=== PATIENT | female | born 1950 | race Hispanic/Latino ===

== ENCOUNTER 2018-08-02 16:15 | Emergency (ER) | payer BC, MEDICARE ==
[2018-08-02 17:05] VITALS: BMI 48.9
[2018-08-02 17:10] VITALS: RESP 18; TEMP 98.3
[2018-08-02] MEDS ORDERED: Oxycodone/Acetaminophen 5/325 mg Tab PO STA (17:17)
--- NOTE | 2018-08-02 17:22 | ED PDOC ---
Arrival/HPI - General Time Seen by Provider: 08/02/18 17:07 Historian: Patient - History of Present Illness Narrative History of Present Illness (Text): 08/02/18 17:21 67 y/o female, pmh including htn/chronic venous stasis, nkda, c/o lower leg pain s/p flying on the plane 2 days ago and concerning for DVT. Pt. stated that she has no chest pain or shortness of breath, no pleuritic pain, no night sweat, no rash, no dizziness, no change in vision, no other medical or psychological complaints. Past Medical History - Provider Review Nursing Documentation Reviewed: Yes Family/Social History - Physician Review Nursing Documentation Reviewed: Yes Family/Social History: Unknown Family HX Allergies/Home Meds Allergies/Adverse Reactions: Allergies No Known Allergies Allergy (Verified 08/02/18 17:17) Review of Systems - Review of Systems Constitutional: absent: Fatigue, Fevers Eyes: absent: Vision Changes ENT: absent: Hearing Changes Respiratory: absent: SOB, Cough Cardiovascular: absent: Chest Pain Gastrointestinal: absent: Abdominal Pain, Diarrhea, Nausea, Vomiting Musculoskeletal: Myalgias. absent: Arthralgias, Back Pain Skin: absent: Rash, Pruritis Neurological: absent: Headache, Dizziness Psychiatric: absent: Anxiety, Depression, Suicidal Ideation Physical Exam Vital Signs Reviewed: Yes Vital Signs Temp Pulse Resp BP Pulse Ox 08/02/18 17:04 98.3 F 75 18 186/93 H 98 Temperature: Afebrile Blood Pressure: Hypertensive Pulse: Regular Respiratory Rate: Normal Appearance: Positive for: Well-Appearing, Non-Toxic, Comfortable Pain Distress: Moderate Mental Status: Positive for: Alert and Oriented X 3 - Systems Exam Head: Present: Atraumatic, Normocephalic Pupils: Present: PERRL Extroacular Muscles: Present: EOMI Conjunctiva: Present: Normal Mouth: Present: Moist Mucous Membranes Neck: Present: Normal Range of Motion Respiratory/Chest: Present: Clear to Auscultation, Good Air Exchange. No: Resp iratory Distress, Accessory Muscle Use Cardiovascular: Present: Regular Rate and Rhythm, Normal S1, S2. No: Murmurs Abdomen: No: Tenderness, Distention, Peritoneal Signs Back: Present: Normal Inspection Upper Extremity: Present: Normal Inspection. No: Cyanosis, Edema Lower Extremity: Present: Normal Inspection, Other (Bilateral lower: visible chronic venuous insufficiency with mild +calf tenderness, no ulcers, FROM without limtiation, sensation intact, motor 5/5, +DPPT pulses bilaterally, capillary refill< 2 seconds, neurovascular intact. ). No: Edema Neurological: Present: GCS=15, CN II-XII Intact, Speech Normal Skin: Present: Warm, Dry, Normal Color. No: Rashes Psychiatric: Present: Alert, Oriented x 3, Normal Insight, Normal Concentration Medical Decision Making ED Course and Treatment: 08/02/18 17:23 -Labs -Sonogram -Percocet -Observe and reassess 08/02/18 18:37 -Bilateral lower extremities venuous doppler: as per preliminary report, no acute DVT but there is a cyst on the rt. popliteal. -Labs are non-significant -UA show +UTI -Pt. feels well, discussed about the result, will discharge home. -Discharge home with keflex, continue your pain medication, continue your stocking, follow up with your own pmd and orthopedic within 2 days, return to the ER for any new or worsening signs or symptoms. - RAD Interpretation Radiology Orders: -Bilateral lower extremities venuous doppler: as per preliminary report, no acute DVT but there is a cyst on the rt. popliteal. Safety Manager: Radiologist - PA / LEHR STRIPPER / Resident Statement MD/DO has reviewed & agrees with the documentation as recorded. Disposition/Present on Arrival - Present on Arrival Any Indicators Present on Arrival: No History of DVT/PE: No History of Uncontrolled Diabetes: No Urinary Catheter: No History of Decub. Ulcer: No - Disposition Have Diagnosis and Disposition been Completed?: Yes Diagnosis: UTI (urinary tract infection), [place] cyst, Calf pain Disposition: HOME/ ROUTINE Disposition Time: 18:38 Patient Plan: Discharge Patient Problems: Current Active Problems Problem Status Onset [place] cyst Acute Calf pain Acute UTI (urinary tract infection) Acute Condition: IMPROVED Additional Instructions: -Discharge home with keflex, tylenol, continue your pain medication, continue your stocking, follow up with your own pmd and orthopedic within 2 days, return to the ER for any new or worsening signs or symptoms. Prescriptions: Acetaminophen [Tylenol] 2 cap PO QID PRN #30 capsule PRN Reason: Other Cephalexin [cephalexin] 500 mg PO BID #14 cap Referrals: Hola Wagner MD [Primary Care Provider] - Follow up with primary Tye Manriquez MD [Staff Provider] - Follow up with primary Noel Eduardo MD [Staff Provider] - Follow up with primary Forms: WORK NOTE
[2018-08-02 17:46] LABS: URINE BILIRUBIN NEGATIVE (NEGATIVE); URINE BLOOD NEGATIVE (NEGATIVE); URINE GLUCOSE (UA) NEGATIVE (NEGATIVE); URINE LEUKOCYTE ESTERASE TRACE Leu/uL (NEGATIVE); URINE PROTEIN NEGATIVE mg/dL (<30 mg/dL); URINE UROBILINOGEN 0.2 E.U./dL (<1 E.U./dL)
[2018-08-02 17:48] LABS: URINE APPEARANCE CLEAR (CLEAR); URINE COLOR YELLOW (YELLOW)
[2018-08-02 17:57] LABS: URINE BACTERIA FEW /hpf
[2018-08-02 18:14] LABS: BASO # 0.04 K/mm3 (0.0-2.0); BASO % 0.6 % (0.0-3.0); EOS # 0.4 (0.0-0.7); EOS % 5.2 % (1.5-5.0); HEMOGLOBIN 14.2 g/dL (12.0-16.0); LYMPH # 1.9 (1.2-3.4); LYMPH % 27.4 % (22.0-35.0); MEAN CELL VOLUME 93.8 fl (80.0-105.0); MEAN CORPUSCULAR HEMOGLOBIN 30.6 pg (25.0-35.0); MEAN CORPUSCULAR HGB CONC 32.6 g/dl (31.0-37.0); MEAN PLATELET VOLUME 10.5 fl (7.0-11.0); MONO # 0.4 (0.1-0.6); MONO % 5.8 % (1.0-6.0); RBC 4.64 10^6/uL (3.5-6.1); RED CELL DISTRIBUTION WIDTH 13.2 % (11.5-14.5); WHITE BLOOD COUNT 6.9 10^3/uL (4.5-11.0)
[2018-08-02 18:22] LABS: ALB/GLOB RATIO 1.4 (1.1-1.8); ALBUMIN 4.1 g/dL (3.0-4.8); ALT/SGPT 27 U/L (7-56); AST/SGOT 21 U/L (14-36); BLOOD UREA NITROGEN 22 mg/dL (7-21); CALCIUM 9.1 mg/dL (8.4-10.5); GFR NON-AFRICAN AMERICAN > 60
[2018-08-02 18:40] VITALS: BP 136/77; PULSE 79; O2SAT 99
--- NOTE | 2018-08-03 08:53 | US ---
HISTORY: Leg pain and swelling. Evaluate for DVT PHYSICIAN(S): Noel Eduardo MD. TECHNIQUE: Duplex sonography and color-flow Doppler with graded compression were used to evaluate the deep venous systems of both lower extremities. Exam is limited by body habitus and edema FINDINGS: The visualized deep venous systems of both lower extremities are sonographically normal and compressible. Normal wave forms and augmentation are seen. There is no sonographic evidence for deep venous thrombosis in the visualized segments of both lower extremities. There is a 4.3 x 1.8 cm fluid collection in the right popliteal fossa, consistent with a [place] cyst IMPRESSION: No sonographic evidence for deep venous thrombosis in the visualized segments of both lower extremities.
== END 2018-08-02 19:10 | disposition home or self-care (01) ==
LOC: ED 16:15 → MERGE 16:15 → ED 19:10
DX: N39.0 Urinary tract infection, site not specified (principal); M71.21 Synovial cyst of popliteal space [Baker], right knee; M79.669 Pain in unspecified lower leg; I10 Essential (primary) hypertension